=== PATIENT | female | born 1965 | race Caucasian/White ===

== ENCOUNTER 2024-06-11 12:15 | Day surgery (SDC) | payer OTHER ==
[~2024-06-11] VITALS: Ht 177.8 cm; Wt 62.5 kg
[2024-06-11] VITALS (11 sets, daily range): BP systolic 120–130; BP diastolic 72–91; PULSE 58–67; TEMP 98.5
[~2024-06-11 12:15] MED LIST: 1/2 NS 1,000 ML IV SCH
[2024-06-11] MEDS ORDERED: ARMOUR THYROID30 MG PO (12:58)
[2024-06-11] MEDS ORDERED: PROMETRIUM200 M1 PO (12:58)
[2024-06-11] MEDS ORDERED: ESTRADERM0.1 MG/24 TD (12:59)
[2024-06-11] MEDS ORDERED: MAGNESIUM GLYC100 MG PO (13:00)
[2024-06-11 13:02] LABS: HEMATOCRIT 45.6 % (37.0-47.0); HEMOGLOBIN 15.6 g/dl (12.5-16.0); MEAN CELL VOLUME 96 fl (80.0-100.0); MEAN CORPUSCULAR HEMOGLOBIN 33 pg (27-31); MEAN CORPUSCULAR HGB CONC 34 g/dl (33.0-37.0); MEAN PLATELET VOLUME 10.7 fl (7.4-10.4); PLATELET COUNT 164 K/mm3 (130-400); RED BLOOD COUNT 4.73 M/mm3 (4.10-5.30); REDCELL DISTRIBUTION WIDTH-CV 12.6 % (11.5-14.5)
[2024-06-11 13:08] LABS: PROTHROMBIN TIME 10.9 SECONDS (9.7-12.8)
[2024-06-11 13:11] LABS: PARTIAL THROMBOPLASTIN TIME 31.6 SECONDS (26.0-37.0)
[2024-06-11 13:23] LABS: CALCIUM 8.8 mg/dL (8.4-10.2); CREATININE, serum 0.78 mg/dL (0.57-1.11)
--- NOTE | 2024-06-11 14:42 | NUR ---
See Merge Report for procedural sedation/notes
[2024-06-11] MEDS ORDERED: Iohexol 350 - 100 ML VIAL INCOR ONE (14:55)
[2024-06-11] MEDS ORDERED: fentaNYL 50 MCG/ML 2 ML VIAL IV SCH (14:56)
[2024-06-11] MEDS ORDERED: Midazolam 2 MG/2 ML VIAL IV SCH (14:56)
[2024-06-11] MEDS ORDERED: ASPIRIN 81M81 MG/TA2 PO (16:53)
[2024-06-11] MEDS ORDERED: LIPITOR 40MG TA40 MG PO (16:53)
--- NOTE | 2024-06-11 18:58 | NUR ---
PT TOLERATED RECOVERY PERIOD WELL AND MAINTAINED FLAT TIME FOR 4 HOURS POST OPERATIVELY. RIGHT FEMORAL SITE REMAINED FREE FROM HEMATOMA AND BLEEDING. DRESSING REMAINED CLEAN DRY AND INTACT. VS REMAINED WITHIN NORMAL LIMITS. IV DISCONTINUED. PT ASSISTED TO ER LOBBY VIA WHEELCHAIR. PT VERBALIZED UNDERSTANDING OF DISCHARGE INSTRUCTIONS.
== END 2024-06-11 19:08 | disposition home or self-care (01) ==
LOC: COL.CAR 12:15
PROVIDERS: Internal Medicine Cardiovascular Disease
DX: I25.10 Atherosclerotic heart disease of native coronary artery without angina pectoris (principal)
CPT/HCPCS: J1644; J2250; J3010; Q9967